=== PATIENT | female | born 1960 | race Hispanic/Latino ===

== ENCOUNTER 2017-05-28 09:32 | Emergency (ER) | payer OTHER ==
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
[2017-05-28] MEDS ORDERED: Povidone Iodine Oint 10% Foilpak UD ONE (10:16)
[2017-05-28 11:48] VITALS: BP 126/78; PULSE 78; RESP 19; TEMP 97.6; O2SAT 98
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
== END 2017-05-28 11:48 | disposition home or self-care (01) ==
LOC: H.ER 09:32
DX: S80.01XA Contusion of right knee, initial encounter (principal); W19.XXXA Unspecified fall, initial encounter; Y92.89 Other specified places as the place of occurrence of the external cause